=== PATIENT | male | born 1975 | race Caucasian/White ===

== ENCOUNTER 2021-10-02 09:10 | Outpatient (CLI) | payer OTHER, SELFPAY ==
--- NOTE | ~2021-10-02 | MR_ITS ---
EXAMINATION: MR lumbar spine wo con DATE: 10/02/2021 11:10 INDICATION: Low back pain and right-sided sciatica TECHNIQUE: Magnetic resonance imaging (MRI) of the lumbar spine was performed without intravenous con trast. Sequences included sagittal T2-weighted FSE, sagittal T2-weighted FS FSE, sagittal T1-weighted FSE, and axial T2-weighted FSE. COMPARISON: None FINDINGS: Alignment is normal. Vertebral body heights are normal. Normal marrow signal. Mild disc height loss with annular fissure and disc extrusion at L4-L5. The conus medullaris terminates at T12. There is no rmal signal in the caudal spinal cord. Paravertebral soft tissues are unremarkable. The following dis c levels are specifically discussed: T12-L1 and L1-L2: The disc does not extend beyond the endplate margin. There is no facet joint osteoa rthritis. There is no neural foraminal stenosis. There is no central canal stenosis. L2-L3: Disc is minimally bulging. There is mild bilateral facet joint osteoarthritis. There is mild b ilateral neural foraminal stenosis. There is no central canal stenosis. L3-L4: Disc is mildly bulging. There is mild bilateral facet joint osteoarthritis. There is mild bila teral neural foraminal stenosis. There is minimal central canal stenosis. L4-L5: Disc is bulging with superimposed disc extrusion which measures 12 mm left to right, 9 mm cran iocaudal and 6 mm AP. This results in severe central canal stenosis as well as severe stenosis of the right and moderate stenosis of the left lateral recesses. There is mild left and moderate right face t joint osteoarthritis. There is mild to moderate bilateral neural foraminal stenosis. L5-S1: The disc does not extend beyond the endplate margin. There is mild bilateral facet joint osteo arthritis. There is no neural foraminal stenosis. There is no central canal stenosis. IMPRESSION: 1. Annular fissure and prominent disc extrusion at L4-L5 resulting in severe central canal stenosis a t this level. Otherwise minimal to mild lumbar spondylosis. Reviewed, dictated and finalized at location B. [employer] IMPRESSION: 1. Annular fissure and prominent disc extrusion at L4-L5 resulting in severe ce ntral canal stenosis at this level. Otherwise minimal to mild lumbar spondylosi s.
== END 2021-10-02 09:11 | disposition home or self-care (01) ==
PROVIDERS: PCP Family Medicine; Visit Provider Family Medicine
DX: M54.31 Sciatica, right side (principal); M54.50 Low back pain, unspecified
CPT/HCPCS: 72148